=== PATIENT | female | born 2005 | race Caucasian/White ===

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

== ENCOUNTER 2025-02-11 07:13 | Emergency (ER) | payer BC, SELFPAY ==
[2025-02-11 07:19] VITALS: BP 130/84; PULSE 85; RESP 20; TEMP 36.6; O2SAT 98; BMI 37.1
--- NOTE | 2025-02-11 07:19 | HMH.EDGENADL ---
Discharge Plan Disposition Patient Disposition: Home, Self-Care Prescriptions Prescriptions: No Action amoxicillin 500 mg capsule 500 mg PO TID 7 Days Qty: 21 0RF metformin 500 mg tablet 500 mg PO BID Qty: 60 2RF citalopram 10 mg tablet See Rx Instructions .ROUTE .COMPLEX Qty: 30 7RF Dose Instruction: TAKE ONE TABLET BY MOUTH EVERY DAY Rx Instructions: TAKE ONE TABLET BY MOUTH EVERY DAY etonogestrel-ethinyl estradiol [NuvaRing] 0.12-0.015 mg/24 hr ring 1 vag ring vaginal Q4W Qty: 3 2RF Rx Instructions: leave in place for 3 weeks of a 4-week cycle Referrals Follow up/Referrals: Provider,Referral, MD [Primary Care Provider] - See instructions Activity Restrictions/Add. Instructions Additional Instructions/Restrictions: Please follow-up with your primary doctor over the next couple of days, please take Tylenol and Motrin for pain. If you are unable to swallow or begin to have the feeling that your throat is swelling please come back to the emergency department for further evaluation. Clinical Impressions Clinical Impression: Sore throat Print Language Print Language: Tunisian Discharge ED Provider: Orion Beltran General Adult HPI General Chief complaint: Upper Respiratory Infection Stated complaint: sore throat, congestion, body aches Time Seen by Provider: 02/11/25 07:19 History of Present Illness HPI narrative: Patient is a 19-year-old female with past medical history of anxiety presenting for sore throat and congestion. According patient she has been having symptoms for about 5 days without shortness of breath, chest pain or fevers. She has been around multiple people that been diagnosed with strep pharyngitis which is her concern today. She is not take any medication prior to arrival and has not seen anyone prior to this evaluation. Patient had no difficulty with eating or drinking and denies abdominal pain, nausea, vomiting Related Data Previous Rx's ?Medication ?Instructions ?Recorded metformin 500 mg tablet 500 mg PO BID #60 tabs 12/07/23 citalopram 10 mg tablet See Rx Instructions .Route 01/23/24 .COMPLEX #30 tabs amoxicillin 500 mg capsule 500 mg PO TID 7 days #21 caps 07/11/24 NuvaRing 0.12 mg-0.015 mg/24 hr 1 vag ring vaginal Q4W #3 ea 02/10/25 vaginal (etonogestrel-ethinyl estradiol) Allergies Allergy/AdvReac Type Severity Reaction Status Date / Time No Known Allergies Allergy Verified 07/07/24 15:18 [facility] Disclaimer: The information contained in this section may have been updated after the patient was seen, as this information can be updated by other users. Medical History (Updated 02/11/25 @ 08:20 by Orion Beltran MD) Abnormal uterine bleeding Anxiety History of gestational diabetes mellitus (GDM) Teen Surgical History History of section Family History Other Cancer Coronary artery disease Diabetes Heart attack Hyperlipidemia Hypertension Thyroid disorder Social History Smoking Status: Never smoker alcohol intake: never substance use type: denies use current occupational status: employed Travel in the last 8 weeks?: None household members: family housing: house Have you lived/traveled outside [place] in past 30 days?: No Contact w/someone who lives/traveled outside US past 30 days?: No Exposure to someone with infectious disease in past 14 days?: No Do you have a fever (greater than 100.4 F or 38 C)?: No Have you tested positive for COVID-19?: No Exposed to someone with COVID-19 in past 14 days?: No Do you have a sore throat?: Yes Do you have a cough?: No Do you have any weakness?: No Do you have any diarrhea?: No Are you experiencing any unusual bleeding?: No Do you have any muscle aches/pain?: Yes Do you have any abdominal pain?: No Are you experiencing loss of taste or smell?: No Other Medical History Have you received the Flu Vaccine for this season: No Have you received the Pneumonia Vaccine: No ROS Obtained: Yes All systems reviewed & no additional complaints except as documented Physical Exam General General appearance: alert and in no apparent distress Head Head exam: atraumatic Eye Eye exam: Present normal appearance ENT ENT exam: Present normal oropharynx, mucous membranes moist and other (Uvula midline, no peritonsillar swelling,) Neck Neck exam: Present normal inspection and full ROM Chest Chest inspection: Present normal inspection and symmetric chest wall rise Respiratory Respiratory exam: Present normal lung sounds bilaterally; Absent respiratory distress, wheezes, stridor or accessory muscle use Cardiovascular Cardiovascular exam: Present regular rate Abdominal Exam Abdominal exam: Present soft; Absent distention or tenderness Neurological Exam Neurological exam: Present alert Medical Decision Making Medical Records Screening: Per USPSTF and CDC recommendations, given the prevalence of disease in our region, it is our hospital?s policy to screen for HIV and viral Hepatitis for all patients aged 18 and over and those with ongoing risk factors. Roberto Inquiry Pt receiving controlled substance: No Vital Signs: 02/11/25 07:19 02/11/25 07:31 Temperature 97.8 F Temperature Source Oral Pulse Rate 86 Pulse Rate [Right Brachial] 85 Respiratory Rate 20 Blood Pressure 112/83 Blood Pressure [Right Arm] 130/84 Blood Pressure Mean [Right Arm] 99 Blood Pressure Source [Right Arm] Automatic Cuff Blood Pressure Position [Right Arm] Supine 02 Sat by Pulse Oximetry 98 97 Oxygen Delivery Method Room Air Room Air Lab Data Lab Results 02/11/25 07:31: Group A Strep Rapid Negative Orders (Tests/Meds): ED MEDICATIONS Discontinued Medications Generic Name Dose Route Start Last Admin Trade Name Freq PRN Reason Stop Dose Admin Acetaminophen 1,000 mg 02/11/25 07:27 02/11/25 07:33 Acetaminophen 500mg Tab PO 02/11/25 07:28 1,000 mg ONCE ONE Administration Dexamethasone 10 mg 02/11/25 07:27 02/11/25 07:33 Dexamethasone 4mg Tablet PO 02/11/25 07:28 10 mg ONCE ONE Administration ORDERS Category Date Time Status Strep Scrn Group A (Rapid) Stat Lab 02/11/25 07:31 Completed Strep Screen Confirmation Stat Micro 02/11/25 07:31 Received Medical Decision Narrative: In summary, this 19-year-old female presents to the emergency department today with sore throat. On initial evaluation patient is well-appearing in no acute respiratory distress, oropharynx is nonerythematous without petechial rash, peritonsillar swelling, and uvula is midline. Differential diagnosis includes but is not limited to strep pharyngitis, viral pharyngitis, viral syndrome. Based on these concerns, I ordered rapid strep swab, dexamethasone Tylenol and Motrin. Patient received dexamethasone, Tylenol and Motrin for treatment. Labs personally reviewed demonstrate strep negative. On reassessment patient standing up in the room in no acute respiratory distress. She is feeling some improvement in her symptoms and discussed that her strep swab was negative. She may have a viral pharyngitis, or viral syndrome and I discussed that the dexamethasone should start to take effect in the next couple of hours and to follow-up with her primary doctor among other strict return precautions. Patient discharged in stable condition. Critical Care Critical Care Time Critical Care Time: No
[2025-02-11 07:31] VITALS: BP 112/83; PULSE 86; O2SAT 97
[2025-02-11] MEDS: ACETAMINOPHEN 500MG TAB 1000 MG PO (07:33)
[2025-02-11] MEDS: DEXAMETHASONE 4MG TABLET 10 MG PO (07:33)
[2025-02-11 08:11] LABS: Strep Scrn Group A (Rapid) Negative (Negative)
[2025-02-11 08:21] VITALS: BP 112/68; PULSE 80; RESP 18; TEMP 37.1; O2SAT 97
== END 2025-02-11 08:24 | disposition home or self-care (01) ==
PROVIDERS: Emergency Provider Student in an Organized Health Care Education/Training Program
DX: R07.0 Pain in throat (principal); Z20.818 Contact with and (suspected) exposure to other bacterial communicable diseases
CPT/HCPCS: 87430; 99283; J8540